=== PATIENT | female | born 1990 | race Caucasian/White ===

== ENCOUNTER 2016-08-27 09:17 | Emergency (ER) | payer OTHER ==
[~2016-08-27] VITALS: Ht 157.5 cm; Wt 61.2 kg
[~2016-08-27 09:17] MED LIST: ALPRAZOLAM XR0.5 MG PO; HYDROCODONE/ACE1 TA1 PO; LEVSIN0.125 MG PO; LEXAPRO 5MG5 MG PO; LEXAPRO10 M1 PO; PEPCID20 MG PO; PHENERGAN25 M1 PO; PROMETHAZINE HC25 M3 PO; SAFYRAL TABLET1 EACH PO; ZOFRAN 4 MG TABL4 MG PO; ZOFRAN ODT4 MG PO
--- NOTE | 2016-08-27 10:08 | ED GI/GU/ABDOMINAL COMPLAINT ---
History of Present Illness General Chief Complaint: Abdominal Pain/Flank Pain Stated Complaint: ABD PAIN, ANXIETY Source: patient, family Exam Limitations: no limitations Vital Signs & Intake/Output Vital Signs & Intake/Output Vital Signs Date Time Temp Pulse Resp B/P Pulse O2 O2 Flow FiO2 Ox Delivery Rate 08/27 1116 98.2 71 18 158/90 98 Room Air 08/27 0938 97.0 91 14 134/98 98 Room Air Allergies Coded Allergies: NO KNOWN ALLERGIES (04/04/15) Reconcile Medications Drospir/Eth Estra/Levomefol Ca (Safyral Tablet) 3-0.03(21) TABLET 1 TAB PO DAILY BC (Reported) Escitalopram Oxalate (Lexapro) 10 MG TABLET 1 TAB PO DAILY MENTAL HEALTH ( Reported) Famotidine (Pepcid) 20 MG TABLET 1 TAB PO BID GASTRITIS Hydrocodone/Acetaminophen (Vicodin 5-300 MG Tablet) 5 MG-300 MG TABLET 1 TAB PO Q6P PRN PAIN Lorazepam 1 MG TABLET 1 TAB PO BID PRN ANXIETY (Reported) Ondansetron (Zofran Odt) 4 MG TAB.RAPDIS 1 TAB SL TID PRN NAUSEA Trazodone HCl 50 MG TABLET 1 TAB PO QPM PRN INSOMNIA Triage Note: 26 Y/O FEMALE C/O CENTER, MID ABDOMINAL PAIN; ONSET THIS AM SINCE WAKING. STATES SHE "DRANK WAY TOO MUCH SATURDAY" AND HAS HAD PAIN "ON AND OFF SINCE SATURDAY". ALSO REPORTS INTERMITTENT N/V - LAST VOMIT THIS AM. DENIES URINARY SYMPTOMS. STATES SHE HAS ANXIETY AND SYMPTOMS ARE "TURNING INTO A PANIC ATTACK". AFEBRILE Triage Nurses Notes Reviewed? yes ? n Is pt currently ? No HPI: Patient states that she was out with her friend on Saturday night and drank too much. Patient states that she has had a burning sensation in her epigastric area as well as nausea and vomiting since then. Patient states she has been unable to keep anything down. Patient states that because of the nausea and vomiting and the pain she is now getting bad anxiety. Patient denies any suicidal or homicidal ideations. The pain is burning sensation in his no radiation. The pain is constant. She rates the pain as 8 out of 10. Past History Travel History Traveled to [place] past 21 day No Medical History Any Pertinent Medical History? 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 No Review of Systems Review of Systems Constitutional: Reports: no symptoms. EENTM: Reports: no symptoms. Respiratory: Reports: no symptoms. Cardiovascular: Reports: no symptoms. GI: Reports: see HPI, abdominal pain, nausea, vomiting. Genitourinary: Reports: no symptoms. Musculoskeletal: Reports: no symptoms. Skin: Reports: no symptoms. Neurological/Psychological: Reports: see HPI, anxiety. Hematologic/Endocrine: Reports: no symptoms. Immunologic/Allergic: Reports: no symptoms. All Other Systems: Reviewed and Negative Physical Exam Physical Exam General Appearance: well developed/nourished, alert, awake, anxious, moderate distress Head: atraumatic Eyes: Bilateral: PERRL, EOMI, other (ANICTERIC). Ears, Nose, Throat, Mouth: hearing grossly normal, DRY MUCOUS MEMBRANES Neck: normal inspection, supple, full range of motion Respiratory: normal breath sounds, chest non-tender, no respiratory distress, lungs clear Cardiovascular: regular rate/rhythm, normal peripheral pulses Gastrointestinal: normal bowel sounds, soft, non-tender, no organomegaly Back: normal inspection, normal range of motion, NO cva TENDERNESS Extremities: normal range of motion Neurologic/Psych: no motor/sensory deficits, awake, alert, oriented x 3, normal gait, normal mood/affect Skin: intact, normal color, warm/dry Core Measures ACS in differential dx? No Severe Sepsis Present: No Septic Shock Present: No Progress Differential Diagnosis: appendicitis, biliary colic, cholecystitis, diverticulitis, ectopic , gastritis, hepatitis, ischemic bowel, inflamm bowel dis, intrauterine , pancreatitis Plan of Care: Orders Procedure Date/time Status LIPASE 08/27 1007 Complete HUMAN BETA HCG SCREEN 08/27 1007 Complete COMPREHENSIVE METABOLIC PANEL 08/27 1007 Complete CBC WITHOUT DIFFERENTIAL 08/27 1007 Complete AMYLASE 08/27 1007 Complete URINE 08/27 0942 Complete URINALYSIS 08/27 0942 Complete Laboratory Tests 08/27/16 1109: Urinalysis LIGHT H, Urine Color YEL, Urine Clarity HAZY H, Urine pH 6.0, Ur Specific [place] 1.025, Urine Protein TRACE H, Urine Ketones 15 H, Urine Nitrite NEG, Urine Bilirubin NEG@ICTO, Urine Urobilinogen 0.2, Ur Leukocyte Esterase SMALL H, Ur Microscopic SEDIMENT EXAMINED, Urine RBC 1-3, Urine WBC 10 -15 H, Ur Epithelial Cells MANY H, Urine Bacteria MANY H, Hyaline Casts RARE H, Urine Mucus FEW, Urine Hemoglobin NEG, Urine Glucose NEG, Urine Test NEGATIVE 08/27/16 1022: Anion Gap 16, Estimated GFR > 60, BUN/Creatinine Ratio 21.7, Glucose 97, Calcium 10.1, Total Bilirubin 0.7, AST 21, ALT 30, Alkaline Phosphatase 79, Total Protein 8.4 H, Albumin 4.7, Globulin 3.7, Albumin/Globulin Ratio 1.3, Amylase < 30 L, Lipase 114, Total Beta HCG NEGATIVE, CBC w Diff NO MAN DIFF REQ, RBC 4.88 , MCV 86.6, MCH 29.6, RDW 13.7, MPV 8.8, Gran % 60.1, Lymphocytes % 28.8, Monocytes % 9.4 H, Eosinophils % 1.3, Basophils % 0.4, Absolute Granulocytes 3.3, Absolute Lymphocytes 1.6, Absolute Monocytes 0.5, Absolute Eosinophils 0.1, Absolute Basophils 0, PUBS MCHC 34.2 Initial ED EKG: none Departure Departure Disposition: HOME OR SELF CARE Condition: Stable Clinical Impression Primary Impression: Gastritis Secondary Impressions: Anxiety Referrals: WINTER SALGUERO MD, V. (PCP/Family) Additional Instructions: TAKE ZOFRAN NEEDED FOR NAUSEA TAKE PEPCID PRESCRIBED RETURN IF SYMPTOMS WORSEN OR FOR ANY CONCERS Departure Forms: Customer Survey General Discharge Information Prescriptions: Current Visit Scripts Ondansetron (Zofran Odt) 1 TAB SL TID PRN NAUSEA #10 TAB Famotidine (Pepcid) 1 TAB PO BID #28 TAB Trazodone HCl 1 TAB PO QPM PRN INSOMNIA #10 TAB Hydrocodone/Acetaminophen (Vicodin 5-300 MG Tablet) 1 TAB PO Q6P PRN PAIN #10 TAB
[2016-08-27 10:35] LABS: ABSOLUTE BASOPHIL COUNT 0 /CUMM (0.0-0.2); ABSOLUTE EOSINOPHIL COUNT 0.1 /CUMM (0.0-0.7); ABSOLUTE GRANULOCYTE CT 3.3 /CUMM (1.4-6.5); ABSOLUTE LYMPH COUNT 1.6 /CUMM (1.2-3.4); ABSOLUTE MONOCYTE COUNT 0.5 /CUMM (0.10-0.60); BASOPHIL % 0.4 % (0.0-2.0); EOSINOPHIL % 1.3 % (0-5); GRANULOCYTE % 60.1 % (42.2-75.2); HEMATOCRIT 42.3 % (37-47); MEAN CORPUSCULAR HGB 29.6 PG (27.0-31.0); MEAN CORPUSCULAR HGB CONC 34.2 G/DL (33.0-37.0); MEAN CORPUSCULAR VOLUME 86.6 FL (81.0-99.0); MEAN PLATELET VOLUME 8.8 FL (7.4-10.4); PLATELET COUNT 314 /CUMM (130-400); RBC DISTRIBUTION WIDTH 13.7 % (11.5-14.5); RED BLOOD CELL CT 4.88 /CUMM (4.20-5.40); WHITE BLOOD CELL COUNT 5.5 /CUMM (4.8-10.8)
[2016-08-27] MEDS ORDERED: LORAZEPAM1 M1 PO (10:57)
[2016-08-27 11:16] VITALS: BP 158/90
[2016-08-27] MEDS ORDERED: ZOFRAN ODT4 M1 SL (12:14)
[2016-08-27] MEDS ORDERED: PEPCID20 M1 PO (12:14)
[2016-08-27] MEDS ORDERED: TRAZODONE HCL50 M1 PO (12:14)
[2016-08-27] MEDS ORDERED: VICODIN 5-3001 EACH PO (12:16)
== END 2016-08-27 12:22 ==
LOC: ERH 09:17
PROVIDERS: Emergency Medicine
DX: K29.70 Gastritis, unspecified, without bleeding (principal); F41.9 Anxiety disorder, unspecified
CPT/HCPCS: 81001; 81025; 96374; 96375; 96376; J1885; J2405

== ENCOUNTER 2016-11-27 08:09 | Emergency (ER) | payer OTHER ==
[~2016-11-27] VITALS: Ht 157.5 cm; Wt 61.2 kg
[~2016-11-27 08:09] MED LIST changes: +LORAZEPAM1 M1 PO; +PEPCID20 M1 PO; +TRAZODONE HCL50 M1 PO; +VICODIN 5-3001 EACH PO; +ZOFRAN ODT4 M1 SL
--- NOTE | 2016-11-27 08:40 | ED GI/GU/ABDOMINAL COMPLAINT ---
History of Present Illness General Chief Complaint: Abdominal Pain/Flank Pain Stated Complaint: ABD PAIN, NAUSEA, VOMITTING, SEEN HERE YEST Source: patient, old records Exam Limitations: no limitations Vital Signs & Intake/Output Vital Signs & Intake/Output Vital Signs Date Time Temp Pulse Resp B/P B/P Pulse O2 O2 Flow FiO2 Mean Ox Delivery Rate 11/27 1030 97.7 80 20 126/74 100 Room Air 11/27 0813 97.6 68 15 119/84 100 Room Air Allergies Coded Allergies: No Known Allergies (11/26/16) Reconcile Medications Dicyclomine Hydrochloride (Bentyl) 10 MG/ML AMPUL 2 ML PO TID SPASMS Drospir/Eth Estra/Levomefol Ca (Safyral Tablet) 3-0.03(21) TABLET 1 TAB PO DAILY BC (Reported) Escitalopram Oxalate (Lexapro) 10 MG TABLET 1 TAB PO DAILY MENTAL HEALTH ( Reported) Metoclopramide HCl 5 MG/5 ML SOLUTION 10 ML PO TID NAUSEA Omeprazole 40 MG CAPSULE.DR 1 CAP PO DAILY GASTRITIS Promethazine HCl (Phenergan) 25 MG/ML VIAL 1 ML PO TID NAUSEA Triage Note: PT TO ED FOR N/V. SEEN HERE IN ED FOR SAME YESTERDAY. PT STATING SHE HAS A HX OF "ANXIETY INDUCED GASTRITIS" REPORTING THIS FEELS THE SAME. Triage Nurses Notes Reviewed? yes ? n Is pt currently ? No Onset: Abrupt Duration: day(s): (4), constant, continues in ED Timing: recent history Location: generalized abdomen Radiation: no radiation Activities at Onset: none No Modifying Factors: none HPI: 26-year-old female comes into emergency room for further evaluation of nausea vomiting and abdominal pain. Patient reports that she's had an intermittent history of gastritis for many years. She reports that symptoms have been going on recently for the past 4 years. Patient denies been able to keep any liquids down. Patient was seen here yesterday and had a CAT scan and blood work done and felt better and was discharged home. Patient continues to vomit. She has been on clear liquids only for last few days. Denies any changes in bowel movement other than the fact that she has been going. Denies any ringing with urination increased frequency or vaginal discharge. Patient reports that she has some associated back pain from all the vomiting on the right side. Nothing seems to make the symptoms better. (EDMUND ORTIZ) Past History Travel History Traveled to [place] past 21 day No Medical History Any Pertinent Medical History? 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 No (EDMUND ORTIZ) Review of Systems Review of Systems Constitutional: Reports: no symptoms. EENTM: Reports: no symptoms. Respiratory: Reports: no symptoms. Cardiovascular: Reports: no symptoms. GI: Reports: see HPI. Genitourinary: Reports: no symptoms. Musculoskeletal: Reports: no symptoms. Skin: Reports: no symptoms. Neurological/Psychological: Reports: no symptoms. Hematologic/Endocrine: Reports: no symptoms. Immunologic/Allergic: Reports: no symptoms. All Other Systems: Reviewed and Negative (EDMUND ORTIZ) Physical Exam Physical Exam General Appearance: well developed/nourished, no apparent distress, alert, awake Head: atraumatic, normal appearance Eyes: Bilateral: normal appearance. Ears, Nose, Throat, Mouth: hearing grossly normal, moist mucous membrane Neck: normal inspection Respiratory: normal breath sounds, no respiratory distress Cardiovascular: regular rate/rhythm Gastrointestinal: soft, tenderness, negative mcburneys point Back: normal inspection, normal range of motion Extremities: normal range of motion Neurologic/Psych: awake, alert, oriented x 3, normal gait, normal mood/affect Skin: intact, normal color Core Measures ACS in differential dx? No Severe Sepsis Present: No Septic Shock Present: No (EDMUND ORTIZ) Progress Differential Diagnosis: appendicitis, biliary colic, bowel obstruction, cholecystitis, diverticulitis, ectopic , gastritis, hepatitis, kidney stone, ovarian cyst, ovarian torsion, pancreatitis, PID/cervicitis, peptic ulcer , PUD/GERD, SBO, UTI/pyelo Plan of Care: Orders Procedure Date/time Status Clear Liquid Diet 11/27 L Active CULTURE,URINE 11/27 0839 Active URINE 06/20 0839 Complete URINALYSIS 11/27 838 Complete LIPASE 11/27 838 Complete COMPREHENSIVE METABOLIC PANEL 11/27 838 Complete CBC WITHOUT DIFFERENTIAL 11/27 838 Complete AMYLASE 11/27 838 Complete Laboratory Tests 11/27/16 0847: Anion Gap 14, Estimated GFR > 60, BUN/Creatinine Ratio 18.3, Glucose 84, Calcium 9.7, Total Bilirubin 0.7, AST 20, ALT 20, Alkaline Phosphatase 61, Total Protein 8.0, Albumin 4.8, Globulin 3.2, Albumin/Globulin Ratio 1.5, Amylase 50, Lipase 198, CBC w Diff NO MAN DIFF REQ, RBC 4.84, MCV 87.8, MCH 29.2, RDW 13.2, MPV 8.6 , Gran % 73.8, Lymphocytes % 18.8 L, Monocytes % 6.5, Eosinophils % 0.7, Basophils % 0.2, Absolute Granulocytes 5.2, Absolute Lymphocytes 1.3, Absolute Monocytes 0.5, Absolute Eosinophils 0.1, Absolute Basophils 0, PUBS MCHC 33.3 11/27/16 0843: Urinalysis LIGHT H, Urine Color YEL, Urine Clarity CLEAR, Urine pH 6.0, Ur Specific [place] 1.025, Urine Protein TRACE H, Urine Ketones 40 H, Urine Nitrite NEG, Urine Bilirubin NEG, Urine Urobilinogen 0.2, Ur Leukocyte Esterase SMALL H, Ur Microscopic SEDIMENT EXAMINED, Urine RBC 1-3, Urine WBC 1-3 H, Ur Epithelial Cells MOD H, Urine Bacteria FEW H, Urine Mucus MOD H, Urine Hemoglobin MOD H, Urine Glucose NEG, Urine Test NEGATIVE Microbiology 11/27 822 URINE ROUT: Urine Culture - RECD Initial ED EKG: none Comments: 11/27/2016 10:51:55 AM Patient feels better here in the emergency room. Spoke with Dr. Phillips from GI. Patient was started on antibiotics as well as PPI and Bentyl. Close follow -up with him this week. She is currently pending a PO challenge with clear liquids here in the emergency room. 11/27/2016 1:02:07 PM Patient tolerating oral liquids here in the emergency room. Spoke with Dr. Phillips from . Patient will follow-up this week. Case discussed with Dr. chowdary. She has not had any vomiting here in the emergency room. She clinically looks well. She does not appear to be any type of distress. Return if any other concerns worsening symptoms. Reevaluated multiple times. Urine culture negative. No suspicion for pyelonephritis. CT scan showed no evidence of appendicitis. This feels consistent with her previous gastritis that she's had for many years intermittently. No suspicion for biliary colic at this time. Patient can get outpatient ultrasound as needed. (CHRISTO KNIGHT,EDMUND) Departure Departure Disposition: HOME OR SELF CARE Condition: Stable Clinical Impression Primary Impression: Gastritis Referrals: ZULLY MENDOZA,ANA SALGUERO MD,WINTER Hernandez (PCP/Family) Additional Instructions: Take Reglan, Phenergan, Bentyl, and omeprazole as prescribed. Follow-up with director of midwifery/staff midwife provided. Return if any concerns worsening symptoms. Please go over all results of today's visit with your primary care doctor. Contact your primary care doctor to let them know you were here in the emergency room. There may be nonspecific findings which may not be related to your visit today here in the emergency room but may require further evaluation and chronic monitoring by your primary care doctor. If you had a laceration today the chance of foreign body always remains. You should follow-up with your primary care doctor for recheck in 3-5 days for a wound check. If you had an x-ray done there is a chance that a fracture could have been missed on initial read and you should follow-up with your primary care doctor for repeat x-rays if symptoms persist. If your blood pressure was elevated here in the emergency room please have rechecked by her primary care doctor within the next 48 hours by your primary care doctor. If you were prescribed a narcotic here in the emergency room or any type of controlled substances you're not allowed to drive while taking this medication or operate any type of heavy machinery. Narcotics can make you feel lightheaded dizziness nausea and can cause constipation. You may need to pickle pumper a stool softener. Thank you for choosing [facility] emergency room. Please return to the emergency room immediately if you have any other concerns worsening of symptoms. Departure Forms: Customer Survey General Discharge Information Prescriptions: Current Visit Scripts Metoclopramide HCl 10 ML PO TID #200 ML Dicyclomine Hydrochloride (Bentyl) 2 ML PO TID #50 ML Promethazine HCl (Phenergan) 1 ML PO TID #50 VIAL Omeprazole 1 CAP PO DAILY #30 CAP (EDMUND ORTIZ) PA/SERVICE CENTER TECHNICIAN Co-Sign Statement Statement: ED Attending supervision documentation- [] I saw and evaluated the patient. I have also reviewed all the pertinent lab results and diagnostic results. I agree with the findings and the plan of care as documented in the PA's/SERVICE CENTER TECHNICIAN's documentation. [X] I have reviewed the ED Record and agree with the PA's/SERVICE CENTER TECHNICIAN's documentation. [] Additions or exceptions (if any) to the PAs/SERVICE CENTER TECHNICIAN's note and plan are summarized below: [] (MALLORIE MENDOZA,DANIEL)
[2016-11-27 09:00] LABS: ABSOLUTE BASOPHIL COUNT 0 /CUMM (0.0-0.2); ABSOLUTE EOSINOPHIL COUNT 0.1 /CUMM (0.0-0.7); ABSOLUTE GRANULOCYTE CT 5.2 /CUMM (1.4-6.5); ABSOLUTE LYMPH COUNT 1.3 /CUMM (1.2-3.4); ABSOLUTE MONOCYTE COUNT 0.5 /CUMM (0.10-0.60); BASOPHIL % 0.2 % (0.0-2.0); EOSINOPHIL % 0.7 % (0-5); GRANULOCYTE % 73.8 % (42.2-75.2); HEMATOCRIT 42.5 % (37-47); MEAN CORPUSCULAR HGB 29.2 PG (27.0-31.0); MEAN CORPUSCULAR HGB CONC 33.3 G/DL (33.0-37.0); MEAN CORPUSCULAR VOLUME 87.8 FL (81.0-99.0); MEAN PLATELET VOLUME 8.6 FL (7.4-10.4); PLATELET COUNT 297 /CUMM (130-400); RBC DISTRIBUTION WIDTH 13.2 % (11.5-14.5); RED BLOOD CELL CT 4.84 /CUMM (4.20-5.40); WHITE BLOOD CELL COUNT 7.1 /CUMM (4.8-10.8)
[2016-11-27 10:30] VITALS: BP 126/74
[2016-11-27] MEDS ORDERED: BENTYL10 MG/1 ML PO (11:41)
[2016-11-27] MEDS ORDERED: PHENERGAN25 MG/1 M1 PO (11:41)
[2016-11-27] MEDS ORDERED: OMEPRAZOLE40 M1 PO (11:41)
[2016-11-27] MEDS ORDERED: METOCLOPRAM5 MG/5 ML PO (11:41)
== END 2016-11-27 11:46 ==
LOC: ERH 08:09
PROVIDERS: Physician Assistant Medical
DX: K29.70 Gastritis, unspecified, without bleeding (principal)
CPT/HCPCS: 81001; 81025; 87086; 96365; J2550